=== PATIENT | female | born 1985 | race Caucasian/White ===

== ENCOUNTER 2017-02-19 06:12 | Emergency (ER) | payer MEDICAID ==
[~2017-02-19] VITALS: Ht 172.7 cm; Wt 65.8 kg
[2017-02-19] MEDS ORDERED: NKM (06:24)
--- NOTE | 2017-02-19 06:38 | Emergency Room Report ---
History of Present Illness General Chief Complaint: Abdominal Pain Source: Patient Present Illness HPI Patient's a 32-year-old female who presented after increased abdominal pain. Patient gradual onset of symptoms over the past few days. Patient had been having watery diarrhea. She denied having any definite fever. She prior history of asthma. She states that she had been feeling somewhat lightheaded. She reports having bilateral low back pain. The pain was constant in her low back. She denies any dysuria. She states that she had recently traveled to [place]. Patient had not been having any significant vomiting. Allergies: Coded Allergies: CODEINE (Verified Allergy, Unknown, 02/19/17) Patient History Past Medical History: see triage record Last Menstrual Period: 01/23/17 Now: No Reviewed Nursing Documentation: PMH: Agreed, PSxH: Agreed Nursing Documentation-PMH Past Medical History: No History, Except For Hx Asthma: Yes History Of Psychiatric Problem: Yes - Anxiety, Depression Review of Systems All Other Systems: negative except mentioned in HPI Physical Exam Vital Signs Date Time Temp Pulse Resp B/P (MAP) Pulse Ox O2 Delivery O2 Flow Rate FiO2 02/19/17 06:19 97.9 104 17 127/89 98 Room Air Sp02 EP Interpretation: reviewed, normal General Appearance: normal inspection, well appearing, no apparent distress, alert, GCS 15 Head: atraumatic ENT: normal ENT inspection, hearing grossly normal, normal voice Neck: normal inspection, full range of motion, supple, no bony tend Respiratory: normal inspection, lungs clear, normal breath sounds, no respiratory distress, no retraction, no wheezing Cardiovascular #1: regular rate, rhythm, no edema Gastrointestinal: normal inspection, normal bowel sounds, non tender, soft, no guarding, no hernia Genitourinary: no CVA tenderness Musculoskeletal: normal inspection, back normal, normal range of motion Neurologic: normal inspection, alert, oriented x3, responsive, infrastructure engineer III-XII nml as tested, speech normal Psychiatric: normal inspection, judgement/insight normal, mood/affect normal Skin: normal inspection, normal color, no rash Medical Decision Making Diagnostic Impression: Primary Impression: Abdominal pain Additional Impressions: Urinary tract infection Dehydration ER Course Patient presented for abdominal pain. Differential diagnoses included ischemic bowel, appendicitis, perforated viscus, abdominal aortic aneurysm, inferior myocardial infarction, viral gastroenteritis. Because of complexity of patient' s case laboratory testing and imaging studies were ordered.Laboratory testing showed evidence of urinary infection. Patient does not have any significant tenderness to right lower quadrant consistent with appendicitis. Patient was advised to be rechecked in the next 2 days for STD testing. She is advised to take medications as prescribed.The patient is advised to follow up with primary care doctor in 1-2 days. Patient is advised to return if any worsening condition or if any changes in status that are concerning. Labs Test 02/19/17 06:38 White Blood Count 5.7 K/UL (4.8-10.8) Red Blood Count 4.92 M/UL (4.20-5.40) Hemoglobin 15.2 G/DL (12.0-16.0) Hematocrit 45.5 % (37.0-47.0) Mean Corpuscular Volume 93 FL (80-99) Mean Corpuscular Hemoglobin 30.9 PG (27.0-31.0) Mean Corpuscular Hemoglobin Concent 33.3 G/DL (32.0-36.0) Red Cell Distribution Width 12.4 % (11.6-14.8) Platelet Count 172 K/UL (150-450) Mean Platelet Volume 9.1 FL (6.5-10.1) Neutrophils (%) (Auto) 72.9 % (45.0-75.0) Lymphocytes (%) (Auto) 16.1 % (20.0-45.0) Monocytes (%) (Auto) 9.7 % (1.0-10.0) Eosinophils (%) (Auto) 0.4 % (0.0-3.0) Basophils (%) (Auto) 0.9 % (0.0-2.0) Urine Color Yellow Urine Appearance Slightly cloudy Urine pH 5 (4.5-8.0) Urine Specific Murray 1.020 (1.005-1.035) Urine Protein 2+ (NEGATIVE) Urine Glucose (UA) Negative (NEGATIVE) Urine Ketones 1+ (NEGATIVE) Urine Occult Blood 2+ (NEGATIVE) Urine Nitrite Negative (NEGATIVE) Urine Bilirubin 1+ (NEGATIVE) Urine Ictotest Negative Urine Urobilinogen 1 MG/DL (0.0-1.0) Urine Leukocyte Esterase 2+ (NEGATIVE) Urine RBC 5-10 /HPF (0 - 2) Urine WBC 2-4 /HPF (0 - 2) Urine Squamous Epithelial Cells Many /LPF (NONE/OCC) Urine Amorphous Sediment Moderate /LPF (NONE) Urine Bacteria Moderate /HPF (NONE) Sodium Level 134 mEQ/L (135-145) Potassium Level 3.8 mEQ/L (3.4-4.9) Chloride Level 95 mEQ/L (98-107) Carbon Dioxide Level 30 mEQ/L (20-30) Anion Gap 9 (5-15) Blood Urea Nitrogen 11 mg/dL (7-23) Creatinine 1.0 mg/dL (0.5-0.9) Estimat Glomerular Filtration Rate > 60 mL/min (>60) Glucose Level 106 mg/dL (74-106) Calcium Level 9.0 mg/dL (8.6-10.2) Magnesium Level 1.6 mg/dL (1.7-2.5) Total Bilirubin 0.4 mg/dL (0.0-1.2) Aspartate Amino Transf (AST/SGOT) 29 U/L (5-40) Alanine Aminotransferase (ALT/SGPT) 13 U/L (3-33) Alkaline Phosphatase 60 U/L (35-104) Total Protein 7.0 g/dL (6.6-8.7) Albumin 4.3 g/dL (3.5-5.2) Globulin 2.7 g/dL Albumin/Globulin Ratio 1.5 (1.0-2.7) Lipase 30 U/L (< 60) Last Vital Signs Date Time Temp Pulse Resp B/P (MAP) Pulse Ox O2 Delivery O2 Flow Rate FiO2 02/19/17 06:19 97.9 104 17 127/89 98 Room Air Status: improved Disposition: HOME, SELF-CARE Condition: Stable Scripts Loperamide HCl (Loperamide) 2 Mg Capsule 2 MG ORAL ONCE, #20 CAP 0 Refills Prov: Matt Vaughn 02/19/17 Cephalexin* (KEFLEX*) 500 Mg Capsule 500 MG ORAL Q6H, #28 CAP 0 Refills Prov: Matt Vaughn 02/19/17 Matt Vaughn Feb 19, 2017 06:38
[2017-02-19] MEDS ORDERED: Dicyclomine HCl 10mg/5ml oral soln ORAL ONE (06:45)
[2017-02-19] MEDS ORDERED: Loperamide 2mg cap ORAL ONE (06:45)
[2017-02-19 06:46] VITALS: BP 126/96
[2017-02-19 06:59] LABS: APPEARANCE,URINE SLIGHTLY CLOUDY; KETONES,URINE 1+ (NEGATIVE); LEUKOCYTE ESTERASE ,URINE 2+ (NEGATIVE); NITRITE,URINE NEGATIVE (NEGATIVE); PH,URINE 5 (4.5-8.0); PROTEIN,URINE 2+ (NEGATIVE); UROBILINOGEN,URINE 1 MG/DL (0.0-1.0)
[2017-02-19 07:12] LABS: BACTERIA,URINE MODERATE /HPF; SQUAMOUS EPITHELIAL CELL,UR MANY /LPF (NONE/OCC)
[2017-02-19 07:13] LABS: AMORPHOUS SEDIMENT,UR MODERATE /LPF
[2017-02-19 07:15] LABS: ICTOTEST NEGATIVE
[2017-02-19 07:21] LABS: ALANINE AMINOTRANSFERASE 13 U/L (3-33); ALBUMIN/GLOBULIN RATIO 1.5 (1.0-2.7); ANION GAP 9 (5-15); ASPARTATE AMINO TRANSFERASE 29 U/L (5-40); BASOPHILS % (AUTO) 0.9 % (0.0-2.0); CARBON DIOXIDE 30 mEQ/L (20-30); CHLORIDE 95 mEQ/L (98-107); EOSINOPHILS % (AUTO) 0.4 % (0.0-3.0); GLOMERULAR FILTRATION RATE > 60 mL/min (>60); HEMOLYSIS 4; LIPASE 30 U/L (< 60); LYMPHOCYTES % (AUTO) 16.1 % (20.0-45.0); MAGNESIUM 1.6 mg/dL (1.7-2.5); MEAN CORPUSCULAR HEMOGLOBIN 30.9 PG (27.0-31.0); MEAN CORPUSCULAR HGB CONC 33.3 G/DL (32.0-36.0); MEAN CORPUSCULAR VOLUME 93 FL (80-99); MEAN PLATELET VOLUME 9.1 FL (6.5-10.1); MONOCYTES % (AUTO) 9.7 % (1.0-10.0); NEUTROPHILS % (AUTO) 72.9 % (45.0-75.0); PLATELET COUNT 172 K/UL (150-450); POTASSIUM 3.8 mEQ/L (3.4-4.9); RED BLOOD COUNT 4.92 M/UL (4.20-5.40); RED CELL DISTRIBUTION WIDTH 12.4 % (11.6-14.8); SODIUM 134 mEQ/L (135-145); WHITE BLOOD COUNT 5.7 K/UL (4.8-10.8)
[2017-02-19 07:35] VITALS: BP 130/101
[2017-02-19] MEDS ORDERED: cefTRIAXone 1 GM in NS 55 ML IVPB ONE (08:00)
[2017-02-19] MEDS ORDERED: Ketorolac 30mg Inj IV ONE (08:00)
[2017-02-19 09:40] VITALS: BP 114/89
[2017-02-19] MEDS ORDERED: KEFLEX500 MG ORAL (10:31)
[2017-02-19] MEDS ORDERED: IMODIUM2 MG ORAL (10:42)
[2017-02-19 10:45] VITALS: BP 109/80
== END 2017-02-19 10:45 | disposition home or self-care (01) ==
LOC: EMR 06:37
DX: R10.9 Unspecified abdominal pain (principal); E86.0 Dehydration; J45.909 Unspecified asthma, uncomplicated; F41.9 Anxiety disorder, unspecified; F32.9 Major depressive disorder, single episode, unspecified
CPT/HCPCS: 36415; 80053; 81003; 83690; 83735; 85025; 87086; 96361; 96365; 96366; 96375; 99284; J0696; J1885; J2405